=== PATIENT | male | born 1990 | race Two or more races ===

== ENCOUNTER 2021-04-09 00:51 | Emergency (ER) | payer BC ==
[2021-04-09] MEDS ORDERED: Diphtheria,Pertussis(Acell),Tetanus Vaccine 0.5 ML Syringe IM ONE (01:58)
[2021-04-09] MEDS ORDERED: Cephalexin 500 MG Cap PO ONE (02:21)
--- NOTE | 2021-04-09 02:24 | CR ---
For Patients: As a result of the Cures Act, medical imaging exams and procedure reports are released immediately into your electronic medical record. You may view this report before your referring provider. If you have questions, please contact your health care provider. INDICATION: Stab posteriorly at base of 3rd digit with limited mobility TECHNIQUE: Hand radiograph 3 views left COMPARISON: None FINDINGS: Bone: No acute fractures or aggressive bone lesions are identified. Joint: The carpal and metacarpal-phalangeal joints are unremarkable in appearance. The interphalangeal joints are normal in appearance. Soft tissue: Unremarkable. No radiopaque foreign bodies are seen. IMPRESSION: 1. No acute osseous injuries or abnormalities are noted. Dictated by: Lauri Garcia MD @ 04/09/2021 02:23:35 (Electronically Signed)
--- NOTE | 2021-04-09 02:45 | EDM.PDOC ---
ED HPI GENERAL MEDICAL PROBLEM - General Chief Complaint: Laceration Stated Complaint: CUT ON LEFT MIDDLE FINGER Time Seen by Provider: 04/09/21 01:46 - History of Present Illness INITIAL COMMENTS - FREE TEXT/NARRATIVE: CHIEF COMPLAINT(S): Cut left middle finger HISTORY OF PRESENT ILLNESS: This is a 31-year-old man without any significant past medical history who comes to the emergency department with a chief compl aint of I cut my left middle finger. The patient states that prior to arrival he accidentally cut his left middle finger on the back of his hand while doing dishes. He states that he currently is not experiencing much pain and rates his pain as 1 out of 10. This is located directly white where the cut is. He denies any numbness or tingling but states that he is unable to lift his middle finger like all of his other fingers. He denies any excessive bleeding. States that his tetanus is not up-to-date.. He denies any other injury. He has not tried anything for pain as his pain is mild. There are no aggravating or relieving factors. There is no radiation of this pain. REVIEW OF SYSTEMS: Skin: Positive for laceration to the posterior aspect of the third digit of the left hand MSK: Positive for mild finger pain and decreased ability to extend third middle finger on the left neurological: Denies numbness, tingling PAST MEDICAL HISTORY: As per history of present illness and as reviewed below otherwise noncontributory. SURGICAL HISTORY: As per history of present illness and as reviewed below otherwise noncontributory. SOCIAL HISTORY: As per history of present illness and as reviewed below otherwise noncontributory. FAMILY HISTORY: As per history of present illness and as reviewed below otherwise noncontributory. EXAMINATION OF ORGAN SYSTEMS/BODY AREAS: Constitutional: Blood pressure was 129/89, heart rate 70, respiratory rate 14 with an oxygen saturation of 98% on room air. Temperature 36.5 General: Overall well-appearing man who is in no acute distress Psychiatric: Appropriate mood and affect. Eyes: No scleral icterus or conjunctival erythema Cardiovascular: Regular, rate, and rhythm. No gallops, murmurs, or rubs. Bilateral upper extremity pulses symmetric and intact. Capillary refill in distal left upper extremity less than 2 seconds in all areas.. Respiratory: Lungs clear to auscultation bilaterally. No wheezes, rales, or rhonchi. Musculoskeletal: The patient is able to fully flex and extend his first second fourth and fifth digits of his left hand. The third digit of his left hand he is able to fully flex however he cannot extend at the MCP joint. He is able to extend at the DIP and the PIP. Skin: 1 cm laceration to the posterior aspect at the base of the third digit of the left hand. No bone or tendon exposed. Neurological: Alert, GCS 15 distal sensation is intact. MEDICAL DECISION MAKING AND COURSE IN THE ED WITH INTERPRETATION/REVIEW OF DIAGNOSTIC STUDIES: This is a 31-year-old man without any significant past medical history who comes to the emergency department with an accidental stab wound to the posterior aspect of his left hand with a laceration without any active bleeding who has difficulty with extension at the MCP joint without any obvious tendon rupture. Otherwise the patient is neurovascularly intact. At this time will obtain a hand x-ray for further evaluation of any abnormality. I did discuss that I would like to speak with orthopedics versus hand surgery regarding the difficulty extension. At this time he reported a mild amount of pain. I did offer pain medication however he stated that he was fine at this time. We will update the patient's tetanus shot. I contacted Dr. Jimenes who recommends placement of a finger splint and follow-up with hand surgery. I contacted hand surgeon Dr. Paulino who recommended laceration repair and to put a finger splint held in extension and he can follow-up next week. He did recommend prophylactic antibiotics. The radiological images were viewed by myself along with reading the report from the radiologist. Left hand x-ray does not reveal any acute fracture or dislocation. No foreign bodies. After imaging I did discuss what hand surgery recommended. For this time we did repair the laceration. Laceration Repair Note Repair of the 1 cm posterior hand wound was done by myself. Wound was irrigated well with saline. Local anesthesia with lidocaine was performed. No foreign bodies were noted. The wound was repaired with 3 4-0 directed nylon sutures. Wound edges approximated well. a sterile dressing were applied. After repair of the laceration I did discuss with patient I be putting him on Keflex for prophylaxis. I did discuss with him the importance of following up with hand surgery. He stated that at this time he has a flight at 8 AM to [place] and he has been to be gone for 2 weeks. At this time I do not have any ability to contact any hand surgeons in [place] therefore I did encourage the patient to reschedule his trip and follow-up with hand surgery given the decreased ability to extend his third digit. This is his nondominant hand. He did express understanding of this time and had no further questions. He was given strict return precautions DISPOSITION: The patient was discharged home in stable condition. The patient will follow up with hand surgery within 1 week CONDITION: Fair PROCEDURES: Laceration repair with stitches FINAL IMPRESSION(S)/DIAGNOSES: 1. Acute posterior hand laceration status post suture repair 2. Acute left third digit extensor tendon disruption, possible tendon rupture Jonatan Salas M.D. Left Finger-Middle Pain Score (Numeric/FACES): 1 - Related Data Allergies Allergy/AdvReac Type Severity Reaction Status Date / Time No Known Allergies Allergy Verified 04/09/21 01:47 Home Meds: Home Meds cephALEXin [Cephalexin] 500 mg PO BID #14 tablet 04/09/21 [Rx] Past Medical History - Past Health History Medical/Surgical History: Denies Medical/Surgical History Social & Family History - Tobacco Use Tobacco Use Status *Q: Never Tobacco User Second Hand Smoke Exposure: No - Caffeine Use Caffeine Use: Reports: None - Recreational Drug Use Recreational Drug Use: No ED ROS GENERAL - Review of Systems Review Of Systems: See Below ED EXAM, SKIN/RASH Exam: See Below Course - Vital Signs Last Recorded V/S: Last Vital Signs Temp 36.5 C 04/09/21 01:41 Pulse 70 04/09/21 01:41 Resp 14 04/09/21 01:41 BP 129/89 04/09/21 01:41 Pulse Ox 98 04/09/21 01:41 - Orders/Labs/Meds Meds: Medications Discontinued Medications Generic Name Dose Route Start Last Admin Trade Name Freq PRN Reason Stop Dose Admin Cephalexin 500 mg 04/09/21 02:21 04/09/21 02:29 Cephalexin 500 Mg Cap PO 04/09/21 02:22 Not Given ONETIME ONE Diphtheria/Tetanus/Acell Pertussis 0.5 ml 04/09/21 01:58 04/09/21 02:19 Diphtheria,Pertussis(Acell),Tetanus Vaccine 0.5 Ml Syringe IM 04/09/21 01:59 0.5 ml .ONCE ONE Administration Lidocaine HCl Confirm 04/09/21 02:26 04/09/21 02:29 Lidocaine 1% 5 Ml Sdv Administered 04/09/21 02:27 5 ml Dose Administration 5 ml .ROUTE .STK-MED ONE Lidocaine HCl 5 ml 04/09/21 02:29 04/09/21 02:30 Lidocaine 1% 5 Ml Sdv INJECT 04/09/21 02:30 Not Given ONETIME ONE Departure - Departure Time of Disposition: 02:43 Disposition: Home, Self-Care 01 Condition: Fair Clinical Impression: Extensor tendon disruption, Hand laceration - Discharge Information *PRESCRIPTION DRUG MONITORING PROGRAM REVIEWED*: No *COPY OF PRESCRIPTION DRUG MONITORING REPORT IN PATIENT HELENA: No Prescriptions: cephALEXin [Cephalexin] 500 mg PO BID #14 tablet Instructions: Laceration Care, Adult, [id number], Sutures, [place], or Adhesive Wound Closure, [id number] Referrals: Elfego Martines MD [Primary Care Provider] - Forms: ED Department Discharge Additional Instructions: Your evaluated today on an emergent basis. At this time we did update your tetanus shot. We did place 3 stitches and the knife wound on the back of your hand. As discussed that it is extremely important that you keep the splint on the middle finger in extension. It is important that you follow-up with hand surgery. Typically this is within 5 to 7 days. Please call the hand surgeon tomorrow to make an appointment. Please use Tylenol and Motrin for pain relief. Please take cephalexin 500 mg twice a day. If you have any pus drainage, redness or any other other concern please return to the emergency department. [facility] [phone] The patient is informed of any results of their evaluation and diagnostic workup and all questions are answered. They are given discharge instructions and return precautions. The patient is stable for discharge. The patient states they understand and agree with the plan and that they will return if their symptoms get worse or if they have any new concerns. The following information is given to patients seen in the emergency department who are being discharged to home. This information is to outline your options f or follow-up care. We provide all patients seen in our emergency department with a follow-up referral. The need for follow-up, as well as the timing and circumstances, are variable depending upon the specifics of your emergency department visit. If you don't have a primary care physician on staff, we will provide you with a referral. We always advise you to contact your personal physician following an emergency department visit to inform them of the circumstance of the visit and for follow-up with them and/or the need for any referrals to a consulting specialist. The emergency department will also refer you to a specialist when appropriate. This referral assures that you have the opportunity for follow-up care with a specialist. All of these measure are taken in an effort to provide you with optimal care, which includes your follow-up. Under all circumstances we always encourage you to contact your private physician who remains a resource for coordinating your care. When calling for follow-up care, please make the office aware that this follow-up is from your recent emergency room visit. If for any reason you are refused follow-up, please contact the [facility] Emergency Department at and asked to speak to the emergency department charge nurse. Sepsis Event Note (ED) - Evaluation Sepsis Screening Result: No Definite Risk
== END 2021-04-09 03:00 | disposition home or self-care (01) ==
LOC: MW.ED 00:51
DX: S61.213A Laceration without foreign body of left middle finger without damage to nail, initial encounter (principal); Z23 Encounter for immunization; W26.8XXA Contact with other sharp object(s), not elsewhere classified, initial encounter
CPT/HCPCS: 12001; 73130-26-LT; 73130-LT; 90471; 90715; 99283; 99283-25